=== PATIENT | female | born 1940 | race Caucasian/White ===

== ENCOUNTER → 2018-09-21 | Outpatient (CLI) | payer OTHER ==
[~2018-09-21] VITALS: Ht 160 cm; Wt 116.1 kg
[~2018-09-21] MED LIST: ASPIR 8181 MG PO; AZULFIDINE500 MG PO; CARVEDILOL12.5 MG PO; LASIX 40 MG TAB40 M2 PO; LISINOPRIL20 MG PO; LIVALO4 MG PO; LOPERAMIDE 2 MG2 M1 PO; PACERONE 200 M200 M1 PO; PRENATAL PO; PRESERVISION A1 EACH PO; SPIRONOLACTONE25 M1 PO
--- NOTE | 2018-09-22 07:31 | EKG ---
[place] [address] [facility] [place] [address] ELECTROCARDIOGRAM REPORT Name: LANOSORIO SUE [id number] ������������������ Admission: 09/21/18 ������������������ Attend Phys: Mahendra Payne MD Discharge: ������������������ Date of : 44 Report #: [id number] ����������������������������������������������������������������� [id number] THIS REPORT FOR: //name// [facility] Test Date: 2018-09-21 Test Time: 09:14:35 Pat Name: OSORIO MONTENEGRO Department: Room: Gender: F Door Installer: JULES : 1940 Requested By: Katie Pantoja Order Number: [id number] MD: Mario Howard Measurements Intervals [place] Rate: 71 P: 76 OH: 188 QRS: -49 QRSD: 149 T: 85 QT: 446 QTc: 485 Interpretive Statements Sinus rhythm Left bundle branch block Compared to ECG 07/21/2014 08:49:47 Ventricular premature complex(es) no longer present Electronically Signed On 09-22-2018 7:31:32 CDT by Mario Howard [email or web address] ��������������������������������������������� <ELECTRONICALLY SIGNED> ���������������������������������������� By: Mario Howard MD, [facility] ��������������������������������������������� [id number] 3 3 Mario Howard MD, [facility] /EPI
--- NOTE | 2018-09-22 13:36 | P ---
[facility] [place] [address] PROCEDURE REPORT Name: OSORIO MONTENEGRO Room #: REG [facility]#: [id number] Admission: 09/21/18 ������������������ Attend Phys: Mahendra Payne MD Discharge: ������������������ Date of : 42 Report #: [id number] THIS REPORT FOR: //name// CC: Ricky Hoffmann MD [facility] Allyssa Payne DATE OF SERVICE: 09/21/2018 BRIEF HISTORY: The patient is a 78-year-old woman with prior history of Crohn's disease. She recently was found to have a drop in hemoglobin consistent with iron deficiency anemia, hemoglobin 7.4. She also recently had an episode of rectal bleeding when she was placed on Eliquis for atrial fibrillation. PREOPERATIVE DIAGNOSES: 1. Iron deficiency anemia, rectal bleeding. 2. History of Crohn's disease. POSTOPERATIVE DIAGNOSES: 1. Cuellar-diverticulosis coli. 2. Rectal fistula, chronic. 3. Scarring of colon consistent with previous inflammatory disease. 4. Nonbleeding proximal ascending colon AVM. MEDICATIONS: Deep sedation with propofol for anesthesia. SPECIMENS: 1. Random biopsies, cecum and ascending colon. 2. Random biopsies, transverse colon. 3. Random biopsies, descending colon. 4. Random biopsies, sigmoid colon. 5. Random biopsies, rectum. ESTIMATED BLOOD LOSS: 5 mL. PROCEDURE: Colonoscopy to cecum and terminal ileum with BICAP hemostasis of AVM and random biopsy colon. FINDINGS: Prior to propofol sedation, procedure of colonoscopy discussed with the patient as well as potential risks and its complications. She indicates she understands and desires that we proceed. DESCRIPTION: With the patient in left lateral decubitus position, digital examination was completed, which revealed no abnormalities. Subsequently, the Olympus video colonoscope was introduced in the rectum, advanced under direct [facility] [address] [place] [address] PROCEDURE REPORT Name: LANOSORIO SUE Room #: REG [facility] Whit#: [id number] Admission: 09/21/18 ������������������ Attend Phys: Mahendra Payne MD Discharge: ������������������ Date of : 42 Report #: [id number] vision to the cecum. Done with minimal difficulty. The cecum was identified by the ileocecal valve and the appendiceal orifice. I was able to advance the scope into the distal ileum which was normal. However, due to looping, I could not advance it more than about 5-7 cm. Again, the ileum was normal. No obvious bleeding sites were seen. At that point, the scope was slowly withdrawn and careful circumferential views obtained. Upon slow withdrawal of the scope, generally the prep was noted to be good. However, she was noted to have diverticular disease from the cecum all the way to the sigmoid. There were few residual stool balls particularly in the cecum. These could not be removed. With these limitations, prep was otherwise good. The mucosa was within normal limits, normal vascular pattern, normal light reflex. As we withdrew the scope, again the colonic mucosa was normal. There was no endoscopic evidence of active inflammatory disease on today's exam. However, in the proximal ascending colon, she was noted to have a nonbleeding AVM that was about 5 mm in greatest dimension. Since she has had bleeding and iron deficiency anemia, this lesion was treated. There was good hemostasis. The scope was further withdrawn and no additional AVMs were seen. There is no evidence of active bleeding in her colon. Again, she had scattered diverticula throughout the entire colon, but there is no endoscopic evidence of diverticulitis. Multiple random biopsies were obtained as we withdrew the scope. No additional abnormalities were seen. Scope withdrawn to the rectum, no abnormalities was noted until upon retroflexion, a fistula opening was seen just proximal to the dentate line. No inflammatory changes were seen. It had a benign appearance. This fistula has been noted on previous exams. Scope was withdrawn. The patient tolerated the procedure well. CONDITION OF THE PATIENT UPON DISCHARGE: Following procedure, the patient drowsy, aroused, conversant and will be discharged home when fully ambulatory. INSTRUCTIONS TO THE PATIENT AND FAMILY AT THE TIME OF DISCHARGE: We will follow up on the path obtained today. Also, have her return at a later date for empty small bowel capsule study. It is certainly possible she may have AVMs in the small bowel. She should resume iron. The patient is asymptomatic and has been stable for many years. I doubt her blood loss is related to active Crohn's disease. We will follow up on the path and make further recommendations with regards to surveillance colonoscopy in the future. ��������������������������������������������� <ELECTRONICALLY SIGNED> ���������������������������������������� By: Mahendra Payne MD ��������������������������������������������� 09/22/18 1336 1126 2253 Mahendra Payne MD /nt
--- NOTE | 2018-09-22 13:36 | P ---
[facility] [place] [address] PROCEDURE REPORT Name: OSORIO MONTENEGRO Room #: REG [facility].#: [id number] Admission: 09/21/18 ������������������ Attend Phys: Mahendra Payne MD Discharge: ������������������ Date of : 42 Report #: [id number] THIS REPORT FOR: //name// CC: Ricky Hoffmann MD [facility] Allyssa Payne BRIEF HISTORY: The patient is a 78-year-old woman who recently was found to have a marked iron-deficiency anemia, requiring iron infusions. She denies any upper GI symptoms. PREOPERATIVE DIAGNOSIS: Iron-deficiency anemia. POSTOPERATIVE DIAGNOSES: 1. Small hiatus hernia. 2. Mild diffuse gastritis. MEDICATIONS: Deep sedation with propofol per anesthesia. SPECIMEN: Small bowel biopsy, rule out celiac disease. ESTIMATED BLOOD LOSS: 3 mL. PROCEDURE: EGD with biopsy. FINDINGS: Prior to propofol sedation, procedure of upper endoscopy discussed with the patient as well potential risks and its complications. She indicates she understands and desires to proceed. DESCRIPTION OF PROCEDURE: With the patient in left lateral decubitus position, the Olympus video endoscope was inserted in the cervical esophagus under direct vision without difficulty. Examination of this organ through its entire length revealed normal esophageal mucosa down the squamocolumnar junction. Intermittently, a small hiatus hernia was seen. The squamocolumnar junction was unremarkable. In the past, there was concern she had esophagus. Biopsies were negative. A esophagus was not seen today. Scope was advanced in the stomach, was examined on end view as well as retroflexed views. There was patchy erythema in the antrum of the stomach. The mucosa was intact. There is no active bleeding lesions. Vascular ectasias were not seen. On retroflex nidus, hernia was seen and no other abnormalities were identified. A source of bleeding was not seen in the stomach or the pylorus. There was normal duodenal bulb with normal postbulbar sweep down to the third portion was normal. Due to the fact she has iron-deficiency anemia, small bowel biopsies obtained to evaluate for celiac disease. At that point, the scope was slowly withdrawn and careful circumferential views confirmed the above finding. Also, it is noted that biopsies in the past were negative for H. pylori and those were not [address] [address] PROCEDURE REPORT Name: LANOSORIO SUE Room #: REG [facility].#: [id number] Admission: 09/21/18 ������������������ Attend Phys: Mahendra Payne MD Discharge: ������������������ Date of : 42 Report #: [id number] repeated today. CONDITION OF THE PATIENT UPON DISCHARGE: Following procedure, the patient drowsy, prepared for colonoscopy. INSTRUCTIONS TO THE PATIENT AND FAMILY AT THE TIME OF DISCHARGE: We will follow up on biopsies taken today. A bleeding source was not identified on her upper endoscopic examination. She will follow up with Dr. Allyssa Rey. Proceed with colonoscopy at this time. ��������������������������������������������� <ELECTRONICALLY SIGNED> ���������������������������������������� By: Mahendra Payne MD ��������������������������������������������� 09/22/18 1336 1053 [id number] Mahendra Payne MD /nt
--- NOTE | 2018-09-23 17:10 | PATH ---
[facility] [place] [address] PATHOLOGY RPT PROCEDURE Name: OANH FLORENCE SALLY Room #: REG JOSE Clara.#: [id number] ������������������ Admission: 09/21/18 ������������������ Date of : 42 Discharge: Report #: [id number] Path Case #: [id number] [facility] Accession Number: [id number] . 01 Material submitted: . PART A: small bowel - BX SMALL BOWEL R/O CELIAC DISEASE PART B: cecum - BX CECUM AND ASCENDING COLON R/O DYSPLASIA HX CROHNS. Modifiers: ascending PART C: colon - BX TRANSVERSE COLON R/O DYSPLASIA HX CROHNS. Modifiers: transverse PART D: colon - BX DESCENDING COLON R/O DYSPLASIA HX CROHNS. Modifiers: descending PART E: colon - BX SIGMOID COLON R/O DYSPLASIA HX CROHNS. Modifiers: sigmoid PART F: rectum - BX RECTUM R/O DYSPLASIA HX CROHNS . 01 Clinical history: . Preop DX: Anemia, Crohns Postop DX: Gastritis, hiatus hernia, diverticulosis, AVM, rectal fistula A. R/O celiac disease B. R/O dysplasia Hx crohns C. R/O dysplasia Hx crohns D. R/O dysplasia Hx crohns E. R/O dysplasia Hx crohns F. R/O dysplasia Hx crohns . 02 Diagnosis: A. Small bowel mucosa, small bowel rule out celiac disease, endoscopic biopsy: - Nonspecific acute and chronic duodenitis associated with focal fundic-type metaplasia, changes compatible with peptic duodenitis. - Negative for villous blunting or increase in intraepithelial lymphocytes. . B. Large intestine mucosa, cecum and ascending colon rule out dysplasia, endoscopic biopsy: - Mild chronic active colitis, history of Crohn's disease. - Negative for dysplasia or malignancy. . C. Large intestine mucosa, transverse colon rule out dysplasia, endoscopic biopsy: - Mild chronic active colitis, history of Crohn's disease. - Negative for dysplasia or malignancy. . D. Large intestine mucosa, descending colon rule out dysplasia, endoscopic biopsy: - Mild chronic active colitis, history of Crohn's disease. - Negative for dysplasia or malignancy. [address] [address] PATHOLOGY RPT PROCEDURE Name: ORION FLORENCESada ZAVALA Room #: REG CLI Whit#: [id number] ������������������ Admission: 09/21/18 ������������������ Date of : 42 Discharge: Report #: [id number] Path Case #: [id number] . E. Large intestine mucosa, sigmoid colon rule out dysplasia, endoscopic biopsy: - Mild chronic active colitis, history of Crohn's disease. - Negative for dysplasia or malignancy. . F. Large intestine mucosa, rectum rule out dysplasia, endoscopic biopsy: - Mild chronic active colitis, history of Crohn's disease. - Negative for dysplasia or malignancy. . (IUV:slab tripper; 09/23/2018) MBR/09/23/2018 . 02 Electronically signed: . Rama Ornelas MD, Pathologist NPI- [id number] . 01 Gross description: . A. Received in formalin labeled "Oanh Florence, Bx small bowel R/O celiac dz," are five segments of pale bang soft tissue measuring 0.9 x 0.7 x 0.3 cm in aggregate dimensions and ranging from 0.2 to 0.4 cm in maximum dimension. The specimen is submitted entirely in cassette A1. . B. Received in formalin labeled "Oanh Florence, Bx cecum and ascending colon R/O dysplasia Hx chrohns," are multiple segments of bang-brown soft tissue measuring 0.8 x 0.8 x 0.2 cm in aggregate dimensions and ranging from 0.2 to 0.4 cm in maximum dimension. The specimen is submitted entirely in cassette B1. . C. Received in formalin labeled "Oanh Florence, Bx transverse colon R/O dysplasia Hx chrohns," are multiple segments of bang-brown soft tissue measuring 1.3 x 0.8 x 0.3 cm in aggregate dimensions and ranging from 0.3 to 0.4 cm in maximum dimension. The specimen is submitted entirely in cassette C1. . D. Received in formalin labeled "Oanh Florence, Bx descending colon R/O dysplasia Hx chrohns," are multiple segments of bang-brown soft tissue measuring 1.6 x 0.8 x 0.3 cm in aggregate dimensions and ranging from 0.2 to 0.4 cm in maximum dimension. The specimen is submitted entirely in cassette D1. . E. Received in formalin labeled "Oanh Florence, Bx sigmoid colon R/O dysplasia Hx chrohns," are multiple segments of bang-brown soft tissue measuring 1.3 x 0.8 x 0.2 cm in aggregate dimensions and ranging from 0.2 to 0.5 cm in maximum dimension. The specimen is submitted entirely in cassette E1. . [facility] [address] [place] [address] PATHOLOGY RPT PROCEDURE Name: OANH FLORENCE SALLY Room #: REG CL M.R.#: [id number] ������������������ Admission: 09/21/18 ������������������ Date of : 42 Discharge: Report #: [id number] Path Case #: [id number] F. Received in formalin labeled "Oanh Florence, Bx rectum R/O dysplasia Hx chrohns," are multiple segments of bang-brown soft tissue measuring 1.3 x 0.7 x 0.2 cm in aggregate dimensions and ranging from 0.2 to 0.4 cm in maximum dimension. The specimen is submitted entirely in cassette F1. ([facility]; 09/22/2018) XDC/XDC . 02 Pathologist provided ICD-10: K29.80, K52.9, D64.9 . 02 CPT . 609963, 965977, 284426, 693325, 572361, 945777 Specimen Comment: A courtesy copy of this report has been sent to Specimen Comment: [phone], . Specimen Comment: Report sent to / DR MCCLENDON Performed at: 01 [facility] [address] [facility] [address], [place] [id number] MD Jorden Jackson MD Phone: [phone] Performed at: 02 [facility] [address] [place], [place] [id number] MD Rama Ornelas MD Phone: [phone]
== END | disposition home or self-care (01) ==
LOC: GI 08:30
DX: K55.20 Angiodysplasia of colon without hemorrhage (principal); K52.9 Noninfective gastroenteritis and colitis, unspecified; K60.4 Rectal fistula; K63.89 Other specified diseases of intestine; K57.30 Diverticulosis of large intestine without perforation or abscess without bleeding; K29.80 Duodenitis without bleeding; K44.9 Diaphragmatic hernia without obstruction or gangrene; I10 Essential (primary) hypertension; E78.5 Hyperlipidemia, unspecified; I48.91 Unspecified atrial fibrillation; G47.30 Sleep apnea, unspecified; I42.9 Cardiomyopathy, unspecified; D64.9 Anemia, unspecified; Z90.710 Acquired absence of both cervix and uterus; Z87.891 Personal history of nicotine dependence; Z79.01 Long term (current) use of anticoagulants; Z85.828 Personal history of other malignant neoplasm of skin; Z98.890 Other specified postprocedural states; Z79.82 Long term (current) use of aspirin; Z79.899 Other long term (current) drug therapy
CPT/HCPCS: 62110; 62900

== ENCOUNTER → 2018-10-13 | Outpatient (CLI) | payer OTHER ==
--- NOTE | ~2018-10-13 | P ---
[facility] [place] [address] PROCEDURE REPORT Name: OSORIO MONTENEGRO [facility] [id number] Admission: 10/13/18 ������������������ Attend Phys: Mahendra Payne MD Discharge: ������������������ Date of : 42 Report #: [id number] THIS REPORT FOR: //name// CC: TRE Payne BRIEF HISTORY: The patient is a 78-year-old woman who presented for further evaluation of iron deficiency anemia. FINDINGS: The patient presented to GI lab and swallowed the M2 capsule for small bowel study. She was noted to have several small AVMs in the proximal small bowel. There is no evidence of active bleeding. These are felt to be potential side of small bowel blood loss. Therefore, I will have her return at a later date for small bowel endoscopy to attempt to identify and treat these lesions. Again, active bleeding was not seen today. ��������������������������������������������� ���������������������������������������� By: ��������������������������������������������� 1141 1307 Mahendra Payne MD /nt
== END | disposition home or self-care (01) ==
LOC: GI 06:21
DX: K55.20 Angiodysplasia of colon without hemorrhage (principal); I10 Essential (primary) hypertension; E78.5 Hyperlipidemia, unspecified; I42.9 Cardiomyopathy, unspecified; K50.90 Crohn's disease, unspecified, without complications; D64.9 Anemia, unspecified; G47.30 Sleep apnea, unspecified; I48.91 Unspecified atrial fibrillation; Z90.710 Acquired absence of both cervix and uterus; Z79.899 Other long term (current) drug therapy; Z79.82 Long term (current) use of aspirin

== ENCOUNTER → 2019-04-15 | Outpatient (CLI) | payer OTHER ==
[~2019-04-15] VITALS: Ht 160 cm; Wt 113.4 kg
[~2019-04-15] MED LIST changes: +TIROSINT100 MCG PO
--- NOTE | ~2019-04-15 | P ---
[facility] [place] [address] PROCEDURE REPORT Name: OSORIO MONTENEGRO Room #: REG [facility]#: [id number] Admission: 04/15/19 Attend Phys: Mahendra Payne MD Discharge: Date of : 42 Report #: [id number] THIS REPORT FOR: //name// CC: Allyssa Payne OUTPATIENT SMALL BOWEL ENDOSCOPY REPORT BRIEF HISTORY: The patient is a 78-year-old woman with iron deficiency anemia requiring iron infusions and blood transfusions. She did have a colonoscopy within the past year and a proximal colon AVM was cauterized. Upper endoscopies were nondiagnostic with regards to anemia. She had an M2 capsule study, which revealed what appeared to be AVMs in the very proximal jejunum. Active bleeding was not encountered, but a couple droplets of blood were seen on the M2 capsule study. She presents now for small bowel endoscopy. PREOPERATIVE DIAGNOSIS: Iron deficiency anemia and abnormal M2 capsule study. POSTOPERATIVE DIAGNOSES: 1. 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 2. Small hiatus hernia. 3. Diffuse gastritis. MEDICATIONS: Deep sedation with propofol per anesthesia. SPECIMEN: None. ESTIMATED BLOOD LOSS: None. PROCEDURE: Small bowel endoscopy with BICAP cautery of multiple arteriovenous malformations. FINDINGS: Prior to propofol sedation, procedure of small bowel endoscopy was discussed with the patient as well as potential risks and its complications as well as the possibility of failure to localize AVMs. She indicates she understands and desire that we proceed. DESCRIPTION OF PROCEDURE: With the patient in left lateral decubitus position, the Olympus pediatric colonoscope was introduced in the oropharynx under direct vision and guided into the esophagus. Examination of esophagus through its entire length revealed normal mucosa. Squamocolumnar junction was inspected and noted to be unremarkable. No ulcers or erosions were seen. A very small hiatus hernia was encountered. The mucosa and hernia was unremarkable. Scope was advanced in the stomach, was examined on end view as well as retroflexed views. There was a pattern of diffuse gastritis. We looked very carefully for AVMs and none were seen. There was no blood within the stomach. The pylorus was [facility] [address] [place] [address] PROCEDURE REPORT Name: ORION MONTENEGROaSda LARAE Room #: REG [facility].#: [id number] Admission: 04/15/19 Attend Phys: Mahendra Payne MD Discharge: Date of : 42 Report #: [id number] unremarkable. Immediately upon entering the duodenal bulb, a small AVM was seen and treated with BICAP probe. We then advanced the scope as far as possible into the jejunum and I believe we were able to easily reach the mid jejunum. A good depth of insertion was obtained. At that point, the scope was slowly withdrawn and careful circumferential views obtained. The prep was excellent. The mucosa was within normal limits, normal vascular pattern, normal light reflex. No active GI bleeding was seen on today's examination. There were 3-4 pinpoint red spots, which may represent AVMs and these were destroyed with BICAP cautery. However, in the very proximal jejunum, there was a cluster of 3 typical appearing AVMs. They were all destroyed with BICAP probe. One of them started oozing blood when it was touched with a BICAP probe. There was good hemostasis. The AVMs were completely destroyed. No further AVMs were seen. Scope was withdrawn. The patient tolerated the procedure well. CONDITION OF THE PATIENT UPON DISCHARGE: Following procedure, the patient drowsy, arousable and conversant and will be discharged home when fully ambulatory. INSTRUCTIONS TO THE PATIENT AND FAMILY AT THE TIME OF DISCHARGE: Multiple AVMs identified and removed as noted above. I would suggest continue to monitor hemoglobin. If she has further evidence of blood loss, we can consider further GI workup. One consideration would be repeat an M2 capsule study. If further AVMs were found in the small bowel which are not reachable with a push enteroscope, double balloon endoscopy may be a consideration. Also, given the fact that she had a colonic AVM, repeat colonoscopy, if there are further problems with anemia, may be a consideration in the future. She will follow up with general with Dr. Allyssa Rey. She should return to see me as needed. By: 1252 2303 Mahendra Payne MD /[place]
== END | disposition home or self-care (01) ==
LOC: GI 08:49
DX: D50.9 Iron deficiency anemia, unspecified (principal); K55.20 Angiodysplasia of colon without hemorrhage; K31.819 Angiodysplasia of stomach and duodenum without bleeding; K29.70 Gastritis, unspecified, without bleeding; K44.9 Diaphragmatic hernia without obstruction or gangrene; G47.30 Sleep apnea, unspecified; K55.21 Angiodysplasia of colon with hemorrhage; I10 Essential (primary) hypertension; E78.5 Hyperlipidemia, unspecified; I48.91 Unspecified atrial fibrillation; I42.9 Cardiomyopathy, unspecified; D64.9 Anemia, unspecified; K50.90 Crohn's disease, unspecified, without complications; Z98.890 Other specified postprocedural states; Z79.899 Other long term (current) drug therapy; Z90.710 Acquired absence of both cervix and uterus; Z87.891 Personal history of nicotine dependence; Z85.828 Personal history of other malignant neoplasm of skin; Z79.82 Long term (current) use of aspirin
CPT/HCPCS: 62110; 62900

== ENCOUNTER → 2019-06-21 | Outpatient (CLI) | payer OTHER | LOC: SJCVC 11:23 | DX: I44.7 Left bundle-branch block, unspecified (principal); R94.31 Abnormal electrocardiogram [ECG] [EKG]; I48.0 Paroxysmal atrial fibrillation; I10 Essential (primary) hypertension; I42.8 Other cardiomyopathies; I35.0 Nonrheumatic aortic (valve) stenosis; Z79.82 Long term (current) use of aspirin; Z79.899 Other long term (current) drug therapy ==

== ENCOUNTER → 2020-01-03 | Outpatient (CLI) | payer OTHER | LOC: SJCVCIMAG 08:57 | PROVIDERS: ATTEND Internal Medicine Cardiovascular Disease | DX: I08.3 Combined rheumatic disorders of mitral, aortic and tricuspid valves (principal); I11.0 Hypertensive heart disease with heart failure; R94.31 Abnormal electrocardiogram [ECG] [EKG]; I44.7 Left bundle-branch block, unspecified; I48.0 Paroxysmal atrial fibrillation; G47.30 Sleep apnea, unspecified; I42.8 Other cardiomyopathies; Z78.9 Other specified health status; Z79.899 Other long term (current) drug therapy; Z87.891 Personal history of nicotine dependence; Z86.2 Personal history of diseases of the blood and blood-forming organs and certain disorders involving the immune mechanism ==

== ENCOUNTER → 2020-07-10 | Outpatient (CLI) | payer OTHER | LOC: SJCVC 13:19 | PROVIDERS: ATTEND Internal Medicine Cardiovascular Disease | DX: R94.31 Abnormal electrocardiogram [ECG] [EKG] (principal); R00.0 Tachycardia, unspecified; I35.0 Nonrheumatic aortic (valve) stenosis; I42.8 Other cardiomyopathies; I10 Essential (primary) hypertension; E78.00 Pure hypercholesterolemia, unspecified; Z79.899 Other long term (current) drug therapy; Z87.891 Personal history of nicotine dependence ==

== ENCOUNTER → 2021-01-25 | Outpatient (CLI) | payer OTHER | LOC: SJCVCIMAG 12:54 | PROVIDERS: ATTEND Internal Medicine Cardiovascular Disease | DX: I08.0 Rheumatic disorders of both mitral and aortic valves (principal); R94.31 Abnormal electrocardiogram [ECG] [EKG]; I45.89 Other specified conduction disorders; R00.8 Other abnormalities of heart beat; I42.8 Other cardiomyopathies; I10 Essential (primary) hypertension; E78.00 Pure hypercholesterolemia, unspecified; I25.2 Old myocardial infarction; I48.0 Paroxysmal atrial fibrillation; I48.91 Unspecified atrial fibrillation; E78.5 Hyperlipidemia, unspecified; Z87.891 Personal history of nicotine dependence; Z72.89 Other problems related to lifestyle; Z79.899 Other long term (current) drug therapy ==